=== PATIENT | female | born 1965 | race African-American/Black ===

== ENCOUNTER 2022-08-24 15:46 | Emergency (ER) | payer BC ==
[2022-08-24 16:01] VITALS: BP 147/86; PULSE 95; RESP 19; TEMP 98.6; BMI 29.3
[2022-08-24] MEDS ORDERED: KETOROLAC TROMETHAMINE 30 MG/1 ML VIAL IM ONE (17:20)
[2022-08-24] MEDS ORDERED: KETOROLAC TROMETHAMINE 30 MG/1 ML VIAL ONE (17:33)
[2022-08-24 17:52] LABS: PH,URINE 7.5 (5.0-8.0); URINE APPEARANCE CLEAR; URINE BILIRUBIN NEGATIVE (NEGATIVE); URINE COLOR YELLOW; URINE GLUCOSE (UA) NEGATIVE (NEGATIVE); URINE KETONE NEGATIVE (NEGATIVE); URINE LEUK ESTERASE NEGATIVE (NEGATIVE); URINE NITRITE NEGATIVE (NEGATIVE); URINE PROTEIN NEGATIVE (NEGATIVE); URINE UROBILINOGEN 0.2 mg/dL (0.2-1.0)
[2022-08-24 17:55] LABS: HCG,QUALITATIVE URINE Negative
== END 2022-08-24 18:36 | disposition home or self-care (01) ==
LOC: JERFT 15:46
PROC: 3E0233Z Introduction of Anti-inflammatory into Muscle, Percutaneous Approach (ICD-10-PCS; principal; 2022-08-24)
DX: M54.41 Lumbago with sciatica, right side (principal)
CPT/HCPCS: 81003; 84703; 87086; 99283-25

== ENCOUNTER 2024-08-03 04:20 | Day surgery (SDC) | payer BC ==
[2024-07-29 16:50] VITALS: BMI 28.8
[2024-08-03] MEDS ORDERED: DEXAMETHASONE SOD PHOSPHATE 4 MG/1 ML VIAL ONE (11:34)
[2024-08-03] MEDS ORDERED: ONDANSETRON 4 MG/2 ML VIAL ONE (11:34)
[2024-08-03] MEDS ORDERED: PROPOFOL 40 ML ONE (11:35)
[2024-08-03] MEDS ORDERED: MIDAZOLAM HCL 2 MG/2 ML SINGLE DOSE VIAL ONE (11:35)
[2024-08-03] MEDS ORDERED: ACETAMINOPHEN 325 MG TABLET (FP) PO PRN (12:24)
[2024-08-03] MEDS ORDERED: IBUPROFEN 400 MG TABLET (FP) PO PRN (12:24)
[2024-08-03] MEDS ORDERED: oxyCODONE HCL 5 MG TABLET PO PRN (12:25)
[2024-08-03] MEDS ORDERED: ONDANSETRON 4 MG/2 ML VIAL IVPUSH PRN ×2 (12:25→12:34)
[2024-08-03] MEDS: LACTATED RINGERS SOLUTION 1,000 ML IV SCH (13:45)
[2024-08-03 15:47] VITALS: RESP 17
[2024-08-03 16:00] VITALS: BP 135/77; PULSE 80; TEMP 97.8
== END 2024-08-03 14:21 | disposition home or self-care (01) ==
LOC: JASU-SURG 04:20
PROVIDERS: ATTEND Obstetrics & Gynecology
PROC: 0UDB8ZX Extraction of Endometrium, Via Natural or Artificial Opening Endoscopic, Diagnostic (ICD-10-PCS; principal; 2024-08-03 11:00)
DX: N84.0 Polyp of corpus uteri (principal)
CPT/HCPCS: 81025; 88305-TC; 94760